=== PATIENT | female | born 1990 | race Caucasian/White ===

== ENCOUNTER 2017-02-11 21:09 | Emergency (ER) | payer OTHER, SELFPAY ==
--- NOTE | 2017-02-12 13:27 | ER ---
ADMIT: 02/11/2017 RM/LOC: ER [facility] MR#: [id number] [address] [address] [address] [address] [place] [place], [place] [id number] Emergency Room Report SEX: F AGE: 26 : 1990 DATE: 02/11/2017 HISTORY OF PRESENT ILLNESS: The patient is a 26-year-old female with a past medical history of fibromyalgia, depression, and migraine headaches, came to the ER with chief complaint of headache which is in the back of the head. It started gradually last night and the pain increased in severity to 10/10 per patient and she could not control it. Per patient, the pain was very similar in quality and quantity of previous headaches she has always had. The last headache was a week ago and before that was a month ago, for which she came to the hospital. The patient states about once a week, she gets a headache and she could not relate the headache to any occasional like mensuration or activities. The patient denies any fever or neck stiffness, but states she has some visual disturbances which for her is usual for her migraine headache allegedly. Headache is on the back of the occipital area. There is no radiation, and headache also increases with loud noise and smell and also bright light. The patient also complains of sore throat for unknown days. The patient denies any cough. The patient also denies any new motor and sensory deficits or problem with the balance or tinnitus. The patient also denies any discharge from the ears and any trauma or using drugs or taking new medications. PHYSICAL EXAMINATION: VITAL SIGNS: The patient had stable vitals, was sitting in a dark room, was in moderate distress. NECK: Soft. There was mild spasm on the left paraspinal, but jolt test was negative. HEENT: Pupils are 3 mm, reactive to light with normal extraocular movements. There is no tenderness over the temporal area. Ears have normal TMs. There is no tenderness over the mastoid area. CHEST: Clear bilateral. HEART: Normal heart sounds. ABDOMEN: Soft. ADMIT: 02/11/2017 RM/LOC: [facility] MR#: [id number] [address] [place] [address] Emergency Room Report SEX: F AGE: 26 : 1990 EXTREMITIES: No edema or pain. NEUROLOGIC: Sensory and motor and cranial nerves are grossly normal. The rest of the physical exam is noncontributory. EMERGENCY DEPARTMENT COURSE: The patient received Toradol IM, also Benadryl IM, and also Zofran p.o. The patient was reexamined. Pain was greatly resolved from 08/28 to 2-3/10. The patient states she feels better and she believes she can go home. The patient was advised to come back if there are any new symptoms or if she has any concerns or questions and was advised to follow up with the primary care doctor. The patient agreed with the plan and was discharged to home. Darvin Zavala MD/ juvenal JOB #: [id number] CC: Meet Menezes MD, Attending Physician Carmella Mayer DO Resident, Family Physician
== END 2017-02-11 23:15 | disposition home or self-care (01) ==
LOC: ER 21:09
DX: R51 Headache (principal); G89.29 Other chronic pain; Z88.0 Allergy status to penicillin; Z91.040 Latex allergy status; Z79.899 Other long term (current) drug therapy